=== PATIENT | male | born 1955 | race Caucasian/White ===

== ENCOUNTER 2024-05-06 07:27 | Outpatient (CLI) | payer MEDICARE, OTHER ==
[2024-05-06] MEDS ORDERED: Iopamidol 370 76% 100 ML VIAL ONE (10:50)
== END 2024-05-06 07:28 | disposition home or self-care (01) ==
LOC: CT 07:27
PROVIDERS: ATTEND Physician Assistant
DX: R22.1 Localized swelling, mass and lump, neck (principal); R60.9 Edema, unspecified
CPT/HCPCS: 70492; 82565; Q9967